=== PATIENT | male | born 2000 | race Two or more races ===

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

== ENCOUNTER 2019-02-19 07:54 | Day surgery (SDC) | payer OTHER ==
[~2019-02-19] VITALS: Ht 165.1 cm; Wt 83.0 kg
[~2019-02-19 07:54] MED LIST changes: +BACL10TA2 PO; +IBUP80TA PO; +LR 1,000 ML IV ONE
[2019-02-19] MEDS ORDERED: dexameTHASONE 4 MG/ML 1ML VIAL (J1100) As Ordered ONE (08:21)
[2019-02-19] MEDS ORDERED: ROCURONIUM BROMIDE 50 MG/5 ML VIAL As Ordered ONE ×2 (08:21→10:15)
[2019-02-19] MEDS ORDERED: PROPOFOL 200 MG/20 ML VIAL As Ordered ONE (08:21)
[2019-02-19] MEDS ORDERED: LIDOCAINE 2% INJ 100 MG/5 ML SDV (FOR ANES.) As Ordered ONE (08:21)
[2019-02-19] MEDS ORDERED: ONDANSETRON 4MG/2ML VIAL (J2405) As Ordered ONE ×2 (08:21→11:41)
[2019-02-19] MEDS ORDERED: fentaNYL 250 MCG/5 ML INJECTION (J3010) As Ordered ONE ×2 (08:22→10:54)
[2019-02-19] MEDS ORDERED: MIDAZOLAM INJ 2 MG/2 ML VIAL (J2250) As Ordered ONE ×2 (08:22→10:54)
[2019-02-19] MEDS ORDERED: BUPIVACAINE/EPIN 0.25% 30 ML VIAL As Ordered ONE (09:23)
[2019-02-19] MEDS ORDERED: LACRILUBE (AKWA TEARS) OPHTH OINT 3.5 GM As Ordered ONE (09:49)
[2019-02-19] MEDS ORDERED: ACETAMINOPHEN 1000MG 100ML IV BTL (OFIRMEV) (J0131 PER 10MG) As Ordered ONE (10:27)
[2019-02-19] MEDS ORDERED: KETOROLAC 60 MG/2 ML VIAL (J1885) As Ordered ONE (10:27)
[2019-02-19] MEDS ORDERED: GLYCOPYRROLATE INJ 0.2 MG/ML 2 ML VIAL As Ordered ONE (10:38)
[2019-02-19] MEDS ORDERED: fentaNYL 100 MCG/2 ML INJECTION (J3010) As Ordered ONE (11:41)
[2019-02-19] MEDS: fentaNYL 100 MCG/2 ML INJECTION (J3010) IV PRN ×4 (11:46→12:14)
[2019-02-19] MEDS: PERCOCET 5MG/325MG TAB PO PRN ×2 (12:08→12:41)
[2019-02-19] MEDS ORDERED: LR 1,000 ML IV SCH (13:00)
[2019-02-19] MEDS ORDERED: METOCLOPRAMIDE INJ 10MG/2ML VIAL (J2765) IV PRN (13:00)
[2019-02-19] MEDS ORDERED: ONDANSETRON 4MG/2ML VIAL (J2405) IV PRN (13:00)
[2019-02-19 13:15] VITALS: BP 113/56
[2019-02-19] MEDS ORDERED: NORCO, ANEXSIA 5/325MG TABLET (HYDROcodone/ACETAMINOPHEN) PO PRN (14:00)
--- NOTE | 2019-02-20 10:22 | RO ---
DATE OF PROCEDURE: 02/19/2019 PREOPERATIVE DIAGNOSIS: Recurrent left inguinal hernia. POSTOPERATIVE DIAGNOSIS: Recurrent left inguinal hernia. PROCEDURE: Robotic recurrent left inguinal hernia repair. SURGEON: Dr. Enriquez VARNISH DIPPER: hSaree Hitchcock NP ANESTHESIA: General. ESTIMATED BLOOD LOSS: 5. COMPLICATIONS: None. INDICATIONS FOR PROCEDURE: Patient is a 19-year-old male whom I saw in the emergency room with an incarcerated left inguinal hernia. I reduced it in the emergency room. He has not had any problems since then. He presented to the office to have this repaired and recommendation was to proceed with robotic repair. Risks and benefits of procedure not limited but including bleeding, infection, hernia recurrence, hernia formation, damage to surrounding structure, need for further surgery were discussed in detail with the patient. Informed consent was obtained and procedure was planned. PROCEDURE: The patient was brought back to operating room #7. After sufficient sedation, the abdomen was sterilely prepped and draped. Next, a time-out was done to confirm proper patient and proper procedure. Following that an 8 mm incision made supraumbilically in the midline. A Veress needle was used to gain access into the abdomen. Once the abdomen was entered, the Veress needle was removed and an 8 mm robotic Optiview port was used to gain access. Once the abdomen was entered, two more 8 mm ports were placed one in the left and right midabdomen. The robot was then connected to the ports. Next, from the console sigmoid adhesions to the left groin were gently taken down. The peritoneum was then incised with curved incision over top of the inguinal canal. There was a large amount of preperitoneal fat extending down through a large hernia defect. This was carefully dissected free and completely reduced from all the cord structures. Once that was completed, I was able to dissect medially. It was difficult due to the very large lipoma that was there, however, I was able to reach the pubic symphysis. After doing so, I took a medium-sized 3DMax light mesh and placed it in the preperitoneal space, sutured it to pubic symphysis with a #2-0 Vicryl suture, placed the mesh overlying the hernia defect capped to the large lipoma pulled inside of the abdomen. Using a #2-0 V-Loc, I was able to close the peritoneal defect from lateral to medial. Once I got as close as I could around the lipoma, I threw the last few sutures through the peritoneum and the base of the lipoma to hold it from sliding back inside. Once that was completed, the needles were removed from the abdomen. The abdomen was desufflated. Skin incisions were closed with #4-0 Vicryl subcuticular sutures. The abdomen was cleaned and dried. Steri-Strips, 4 x 4 and tape were applied, thus ending procedure.
[2019-02-20] MEDS ORDERED: NORC1TAB7 PO (21:52)
== END 2019-02-19 13:47 | disposition home or self-care (01) ==
LOC: M SDC 07:54
PROVIDERS: ATTEND Surgery
DX: K40.91 Unilateral inguinal hernia, without obstruction or gangrene, recurrent (principal); F17.210 Nicotine dependence, cigarettes, uncomplicated
CPT/HCPCS: 49650; C1781; J0131; J0690; J1100; J1885; J2250; J2405; J2765; J3010

== ENCOUNTER 2019-02-19 21:55 | Emergency (ER) | payer OTHER ==
[~2019-02-19] VITALS: Ht 165.1 cm; Wt 82.7 kg
[2019-02-19 21:55] VITALS: BP 155/82
[~2019-02-19 21:55] MED LIST changes: -LR 1,000 ML IV ONE
[2019-02-20] MEDS ORDERED: NORC1TAB7 PO (21:52)
== END 2019-02-19 22:43 | disposition left against medical advice (07) ==
LOC: M ED 21:55
DX: Z53.21 Procedure and treatment not carried out due to patient leaving prior to being seen by health care provider (principal)

== ENCOUNTER 2019-02-20 21:36 | Emergency (ER) | payer OTHER ==
[~2019-02-20] VITALS: Ht 165.1 cm; Wt 81.8 kg
[2019-02-20] MEDS ORDERED: NORC1TAB7 PO (21:52)
[2019-02-20 23:41] VITALS: BP 137/81
== END 2019-02-20 23:43 | disposition home or self-care (01) ==
LOC: M ED 21:36
DX: H11.31 Conjunctival hemorrhage, right eye (principal); Z79.891 Long term (current) use of opiate analgesic

== ENCOUNTER 2020-06-09 11:15 | Emergency (ER) | payer OTHER ==
[~2020-06-09] VITALS: Ht 165.1 cm; Wt 89.0 kg
[2020-06-09 11:15] VITALS: BP 139/89
[~2020-06-09 11:15] MED LIST changes: +NORC1TAB7 PO
[2020-06-09] MEDS ORDERED: AUGM875T28 PO (11:32)
[2020-06-09] MEDS ORDERED: CIPRODEX OTIC (11:48)
[2020-06-09] MEDS ORDERED: PRED20TA PO (11:48)
[2020-06-09] MEDS ORDERED: AZIT-12 PO (11:48)
== END 2020-06-09 11:55 | disposition home or self-care (01) ==
LOC: M ED 11:15
DX: H66.92 Otitis media, unspecified, left ear (principal); H60.92 Unspecified otitis externa, left ear; E78.5 Hyperlipidemia, unspecified